=== PATIENT | male | born 1960 | race Caucasian/White ===

== ENCOUNTER 2024-02-06 15:42 | Outpatient (AMB) | payer OTHER, SELFPAY ==
--- NOTE | 2024-02-06 15:45 | MHC.PC.OV ---
Vital Signs 02/06/24 15:55 02/06/24 16:01 Height 5 ft 10.87 in Weight 220 lb 6 oz BMI 30.8 BP 142/84 H 134/70 Blood Pressure Location Lt brachial Lt brachial Position Sitting Sitting Respiration 20 Pulse 74 Pulse Source Pulse Oximeter Temp 98.5 F Temp Source Oral Pulse Oximetry (%) 95 Oxygen Delivery Method Room Air Intake Visit Reasons: NPV Intake Note: New patient visit. 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 Hand Required: No Allergies Penicillins Allergy (Unknown, Verified 02/06/24 15:54) Unknown Medication List - Last Reconciled 02/06/24 by Gertrudis Doshi MD docusate sodium (Colace) 100 mg PO DAILY dutasteride-tamsulosin 0.5-0.4 mg ER 1 cap PO DAILY lisinopril-hydrochlorothiazide 10-12.5 mg 1 tab PO DAILY multivitamin 1 tab PO DAILY Tobacco use date assessed: 02/06/24 Dental Screening Dental Screen Date: 02/06/24 Did you have a dental visit in the last 12 months?: No Did you have a dental problem in the last 6 months where you did not have access to dental care?: Yes Was dental information given to patient?: Yes HPI HPI Comments History of Present Illness Details 63 year old male with a past medical history of hypertension, perforated diverticulitis, BPH, DDD, CTS presenting to [facility]. Has not seen pcp in a few years Was hospitalized 08/2023 for perforated diverticulitis s/p Hartmanns. Has follow up with colorectal planned at [facility] for consideration of reversal & colonoscopy CV: On lisinopril-hctz Urology: Started on flomax while hospitalized Reports one week history of cough, congestion, some fatigue. ROS see HPI PHYSICAL EXAM: GENERAL: Alert and oriented x 3. NAD EYES: EOMI. Anicteric. HENT: Moist mucous membranes. No scleral icterus. No cervical lymphadenopathy. LUNGS: Scattered rhonci, wheeze CARDIOVASCULAR: Regular rate and rhythm. No murmur. No JVD. ABDOMEN: Soft, non-tender +bs EXTREMITIES: No edema. Non-tender. SKIN: No rashes or lesions. Warm. NEUROLOGIC: No focal neurological deficits. CN II-XII grossly intact PSYCHIATRIC: Cooperative. Appropriate mood and affect [facility] Social History Housing: House Patient Tobacco Use Status: Former Tobacco user Cigarette Packs Per Day: 0.5 Years Smoked: 15 e-Cigarette/Vaping Use: Never Used Second Hand Smoke Exposure: No Substance Use Type: Marijuana service: No Current occupational status: retired Cognitive needs: No Hearing needs: No Questionnaire Thrive Questionnaire Date Thrive assessed: 02/06/24 I am a: Patient What is your living situation today?: I have a steady place to live Within the past 12 months, did the food you bought not last and you didn't have the money to get more?: Never true Within the past 12 months, did you worry whether your food would run out before you got money to buy more?: Never true Do you have trouble paying for medicines?: No Do you have trouble getting transportation to medical appointments?: No Do you have trouble paying your heating and electricity bill?: No Do you have trouble taking care of your child, family member or friend?: No Do you have trouble with day-to-day activities such as bathing, preparing meals, shopping, managing finances, etc.?: No Are you currently unemployed and looking for a job?: No Are you interested in more education?: No Please select the resources that you would like help with: None THRIVE Score: 0 AUDIT C Alcohol Use Questionnaire (AUDIT-C) 1. How often do you have a drink containing alcohol?: 2-4 times a month 2. How many drinks containing alcohol do you have on a typical day when you are drinking?: 3 or 4 3. How often do you have six or more drinks on one occasion?: Never Total Score: 3 Physical exam (Primary Care) Vital Signs: Last Vital Signs Temp 98.5 F 02/06/24 15:55 Pulse 74 02/06/24 15:55 Resp 20 02/06/24 15:55 BP 134/70 02/06/24 16:01 Pulse Ox 95 02/06/24 15:55 Oxygen Delivery Method Room Air 02/06/24 15:55 BMI result Body Mass Index 30.8 Tobacco/Smoking Status: Tobacco use Status Tobacco use date assessed 02/06/24 02/06/24 16:03 Patient Tobacco Use Status Former Tobacco user 02/06/24 16:03 e-Cigarette/Vaping Use Never Used 02/06/24 16:03 Thrive Assessment: Date of Thrive Assessment Date Thrive assessed 02/06/24 02/06/24 16:03 Assessment and Plan Assessment & Plan (1) BPH (benign prostatic hyperplasia): Code(s): N40.0 - Benign prostatic hyperplasia without lower urinary tract symptoms Qualifiers: Lower urinary tract symptom detail: unspecified Lower urinary tract symptom presence: symptoms present Qualified Code(s): N40.1 - Benign prostatic hyperplasia with lower urinary tract symptoms Plan: psa ordered. continue flomax (2) Cough: Code(s): R05.9 - Cough, unspecified Qualifiers: Cough type: acute Qualified Code(s): R05.1 - Acute cough Plan: Bronchitis v RAD v pneumonia. Doxy & prednisone send (3) Hypertension: Code(s): I10 - Essential (primary) hypertension Qualifiers: Hypertension type: primary hypertension Qualified Code(s): I10 - Essential (primary) hypertension Plan: Adequately controlled on current medications Plan 63 y/o to establish care. Past medical, surgical, social and family history reviewed. Chart updated Orders: Orders Comprehensive Met. Panel 02/06/24 N40.0 - Benign prostatic hyperplasia without lower urinary tract symptoms, Z13.0 - Encounter for screening for diseases of the blood and blood-forming organs and certain disorders involving the immune mechanism, R05.9 - Cough, unspecified, I10 - Essential (primary) hypertension, Z93.3 - Colostomy status Prostate Specific Antigen 02/06/24 N40.0 - Benign prostatic hyperplasia without lower urinary tract symptoms, Z13.0 - Encounter for screening for diseases of the blood and blood-forming organs and certain disorders involving the immune mechanism, R05.9 - Cough, unspecified, I10 - Essential (primary) hypertension, Z93.3 - Colostomy status Lipid Panel 02/06/24 N40.0 - Benign prostatic hyperplasia without lower urinary tract symptoms, Z13.0 - Encounter for screening for diseases of the blood and blood-forming organs and certain disorders involving the immune mechanism, R05.9 - Cough, unspecified, I10 - Essential (primary) hypertension, Z93.3 - Colostomy status Complete Blood Count Auto Diff 02/06/24 N40.0 - Benign prostatic hyperplasia without lower urinary tract symptoms, Z13.0 - Encounter for screening for diseases of the blood and blood-forming organs and certain disorders involving the immune mechanism, R05.9 - Cough, unspecified, I10 - Essential (primary) hypertension, Z93.3 - Colostomy status UA CC w/rflx Micro + Cult 02/06/24 Z13.228 - Encounter for screening for other metabolic disorders, I10 - Essential (primary) hypertension Medications: New lisinopril-hydrochlorothiazide 10-12.5 mg 1 tab PO DAILY 90 tabs 3RF 90 days tamsulosin 0.4 mg PO DAILY albuterol sulfate 2.5 mg (3 mL) inhalation Q4H PRN 90 mL 3RF shortness of breath or wheezing doxycycline monohydrate 100 mg PO BID 14 caps 0RF 7 days prednisone 40 mg (2 x 20 mg) PO DAILY 10 tabs 0RF 5 days Coding Level of Care Code New Pt Level 5 (34355) Diagnoses Benign prostatic hyperplasia with lower urinary tract symptoms, symptom details unspecified N40.1 Lower urinary tract symptom detail: unspecified Lower urinary tract symptom presence: symptoms present Acute cough R05.1 Cough type: acute Primary hypertension I10 Hypertension type: primary hypertension
[2024-02-06 15:55] VITALS: BP 142/84; PULSE 74; RESP 20; TEMP 36.9; O2SAT 95; BMI 30.8
[2024-02-06 16:01] VITALS: BP 134/70
== END 2024-02-06 16:37 | disposition home or self-care (01) ==
PROVIDERS: PCP Internal Medicine; Visit Provider Internal Medicine
DX: N40.1 Benign prostatic hyperplasia with lower urinary tract symptoms (principal); R05.1 Acute cough; I10 Essential (primary) hypertension
CPT/HCPCS: 99204

== ENCOUNTER 2024-04-13 09:11 | Outpatient (REF) | payer OTHER, SELFPAY ==
[2024-04-13 11:46] LABS: MANUAL DIFF FLAG NO
[2024-04-13 12:08] LABS: Basophils Absolute Auto 0.1 X10*3/uL (0.0-0.2); Basophils Percent Auto 0.7 % (0-2); Eosinophils Absolute Auto 0.2 X10*3/uL (0.0-0.4); Eosinophils Percent Auto 3.2 % (0-4); Hematocrit 45.6 % (42.0-52.0); Hemoglobin 15.7 g/dl (14.0-18.0); Imm Gran Abs Auto 0.03 X10*3/uL (0.00-0.03); Imm Gran Pct Auto 0.4 % (0.0-0.4); Lymphocytes Absolute Auto 4.1 X10*3/uL (1.2-4.9); Lymphocytes Percent Auto 53.9 % (20-40); Mean Corpuscular HGB Conc 34.4 g/dl (31.0-36.0); Mean Corpuscular Hemoglobin 30.3 pg (27.0-33.0); Mean Corpuscular Volume 87.9 fL (80.0-98.0); Mean Platelet Volume 9.4 fL (9.4-12.4); Monocytes Absolute Auto 0.7 X10*3/uL (0.1-1.2); Monocytes Percent Auto 9.5 % (2-11); Neutrophils Absolute Auto 2.5 x10*3/uL (2.0-8.3); Neutrophils Percent Auto 32.3 % (45-73); Platelet Count 244 X10*3/uL (160-400); Red Blood Count 5.19 X10*6/uL (4.60-5.80); Red Cell Distribution Width 12.5 % (11.0-16.0); White Blood Count 7.6 X10*3/uL (4.8-10.8)
[2024-04-13 12:35] LABS: Alanine Aminotransferase 25 U/L (0-40); Albumin Level 4.2 g/dL (3.5-5.0); Alkaline Phosphatase 69 U/L (39-117); Anion Gap 12 (12-20); Aspartate Amino Transferase 20 U/L (5-37); Bilirubin Total 0.7 mg/dL (0.0-1.0); Blood Urea Nitrogen 21 mg/dL (9-16); Calcium 9.6 mg/dL (8.4-10.2); Carbon Dioxide 26 mmol/L (22-29); Chloride 105 mmol/L (96-108); Cholesterol 166 mg/dL (<200); Estimated Glomerular Filt Rate > 60; Glucose Random 106 mg/dL (60-115); HDL Cholesterol 42 mg/dL (>40); LDL Cholesterol Calculated 100 mg/dL (<100); Potassium 3.9 mmol/L (3.3-5.1); Sodium 139 mmol/L (135-145); Total Protein 7.4 g/dL (6.5-8.0); Triglycerides 123 mg/dL (<150)
[2024-04-13 12:48] LABS: Prostate Specific Antigen 1.65 ng/mL (<0.05-4.0)
== END 2024-04-13 09:12 | disposition home or self-care (01) ==
LOC: HO.WFDLDS 09:11
PROVIDERS: Visit Provider Internal Medicine
DX: N40.0 Benign prostatic hyperplasia without lower urinary tract symptoms (principal); Z13.0 Encounter for screening for diseases of the blood and blood-forming organs and certain disorders involving the immune mechanism; R05.9 Cough, unspecified; I10 Essential (primary) hypertension; Z93.3 Colostomy status
CPT/HCPCS: 36415; 80053; 80061; 84153; 85025

== ENCOUNTER 2024-04-17 14:28 | Outpatient (REF) | payer OTHER, SELFPAY ==
[2024-04-17 14:42] LABS: Appearance Urine Clear; Color Urine Yellow; Glucose Urine UA Negative (Negative); Leukocyte Esterase Urine Small (1+) (Negative); Nitrite Urine Positive (Negative); PH 5.5 (5.0-9.0); Specific Gravity - Urine 1.015 (1.005-1.025); UMIC TRIGGER UACC YES; Urine Blood Negative (Negative); Urine Ketones Negative (Negative); Urine Protein Negative (Neg-Trace)
[2024-04-17 14:48] LABS: Bacteria Urine 4+ (None Seen); Hyaline Casts Urine 0-2 /LPF (0-2); RBC Urine 0-2 /HPF (0-2); Squamous Epithelial Cell Urine 0-2 /HPF (0-2); UACC Culture Trigger YES; WBC Urine 21-50 /HPF (0-5)
== END 2024-04-17 14:29 | disposition home or self-care (01) ==
LOC: HO.LNP 14:28
PROVIDERS: Visit Provider Internal Medicine
DX: I10 Essential (primary) hypertension (principal); Z13.228 Encounter for screening for other metabolic disorders
CPT/HCPCS: 81001; 87086; 87088; 87186

== ENCOUNTER 2024-05-18 11:18 | Outpatient (AMB) | payer OTHER, SELFPAY ==
--- NOTE | 2024-05-18 11:27 | MHC.PC.OV ---
Vital Signs 05/18/24 11:30 05/18/24 11:45 Height 5 ft 10.87 in Weight 236 lb 6 oz BMI 33.1 BP 146/88 H 137/90 H Blood Pressure Location Rt brachial Rt brachial Position Sitting Sitting Respiration 16 Pulse 88 Pulse Source Pulse Oximeter Pulse Oximetry (%) 94 Oxygen Delivery Method Room Air Intake Visit Reasons: annual physical Intake Note: Physical. Has been out of blood pressure medication for 4 days. Hazardous Substances Scientist Required: No Allergies Penicillins Allergy (Unknown, Verified 05/18/24 11:28) Unknown Tobacco use date assessed: 02/06/24 Dental Screening Dental Screen Date: 02/06/24 HPI HPI Comments History of Present Illness Details 63 year old male with a past medical history of hypertension, perforated diverticulitis, BPH, DDD, CTS presenting for physical exam Was hospitalized 08/2023 for perforated diverticulitis s/p Hartmanns. Has follow up with colorectal planned at [facility] for consideration of reversal & colonoscopy in Aug 2024 CV: On lisinopril-hctz. Blood pressure is generally well controlled. Denies chest pain, shortness of breath, LE edema Urology: Started on flomax while hospitalized which he has continued. Had tested + for UTI-he did not tolerate the initial antibiotic and just got back from [place] and is starting the alternate abx today Says he received flu, covid and shingles vaccine at the pharmacy ROS see HPI PHYSICAL EXAM: GENERAL: Alert and oriented x 3. NAD EYES: EOMI. Anicteric. HENT: Moist mucous membranes. No scleral icterus. No cervical lymphadenopathy. LUNGS: Scattered rhonci, wheeze CARDIOVASCULAR: Regular rate and rhythm. No murmur. No JVD. : Normal penis and testes ABDOMEN: Soft, non-tender +bs EXTREMITIES: No edema. Non-tender. SKIN: No rashes or lesions. Warm. NEUROLOGIC: No focal neurological deficits. CN II-XII grossly intact PSYCHIATRIC: Cooperative. Appropriate mood and affect [facility] Social History Housing: House Patient Tobacco Use Status: Former Tobacco user Cigarette Packs Per Day: 0.5 Years Smoked: 15 e-Cigarette/Vaping Use: Never Used Second Hand Smoke Exposure: No Substance Use Type: Marijuana service: No Current occupational status: retired Cognitive needs: No Hearing needs: No Questionnaire PHQ-9 Over the last 2 weeks, how often have you been bothered by any of the following problems? 1. Little interest or pleasure in doing things: not at all 2. Feeling down, depressed, or hopeless: not at all 3. Trouble falling or staying asleep, or sleeping too much: not at all 4. Feeling tired or having little energy: not at all 5. Poor appetite or overeating: not at all 6. Feeling bad about yourself - or that you are a failure or have let yourself or your family down: not at all 7. Trouble concentrating on things, such as reading the newspaper or watching television: not at all 8. Moving or speaking so slowly that other people could have noticed. Or the opposite - being so fidgety or restless that you have been moving around a lot more than usual: not at all 9. Thoughts that you would be better off or of hurting yourself in some way: not at all Total score: 0 Depression Screening Interpretation: Negative Depression Screening Done: Yes 55729 - PHQ-9 Billing: Yes Source: Developed by Drs. Jean-Pierre Pelayo, Mihaela Luna, Shimon Marquez and colleagues, with an educational jony from [employer]. Thrive Questionnaire Date Thrive assessed: 05/18/24 I am a: Patient What is your living situation today?: I have a steady place to live Within the past 12 months, did the food you bought not last and you didn't have the money to get more?: Never true Within the past 12 months, did you worry whether your food would run out before you got money to buy more?: Never true Do you have trouble paying for medicines?: No Do you have trouble getting transportation to medical appointments?: No Do you have trouble paying your heating and electricity bill?: No Do you have trouble taking care of your child, family member or friend?: No Do you have trouble with day-to-day activities such as bathing, preparing meals, shopping, managing finances, etc.?: No Are you currently unemployed and looking for a job?: No Are you interested in more education?: No Please select the resources that you would like help with: None Currently or been in a relationship where the following occur: No concerns reported THRIVE Score: 0 Physical exam (Primary Care) Vital Signs: Last Vital Signs Pulse 88 05/18/24 11:30 Resp 16 05/18/24 11:30 BP 146/88 H 05/18/24 11:30 Pulse Ox 94 05/18/24 11:30 Oxygen Delivery Method Room Air 05/18/24 11:30 BMI result Body Mass Index 33.1 Tobacco/Smoking Status: Tobacco use Status Tobacco use date assessed 02/06/24 05/18/24 11:32 Patient Tobacco Use Status Former Tobacco user 05/18/24 11:32 e-Cigarette/Vaping Use Never Used 05/18/24 11:32 PHQ-9: PHQ-9 Score PHQ-9: Total score 0 05/18/24 11:32 Depression Screening Interpretation: Negative Thrive Assessment: Date of Thrive Assessment Date Thrive assessed 04/07/24 05/18/24 11:32 Currently or been in a relationship where the following occur: No concerns reported Coding Level of Care Code Est Pt Level 4 (72204) Est Pt Prev Care 40-64y(42801) Diagnoses Encounter for physical examination Z00.00 Assessment & Plan Assessment & Plan (1) Encounter for physical examination: Code(s): Z00.00 - Encounter for general adult medical examination without abnormal findings Plan: Preventive measures for age discussed UTD. Upcoming double endoscopy -Aug Recheck CBC Chronic medical conditions reviewed Orders: Orders Complete Blood Count Auto Diff Today R79.89 - Other specified abnormal findings of blood chemistry Pathologist Review - CBC Today R79.89 - Other specified abnormal findings of blood chemistry Medications: New olopatadine 0.2% (Pataday Once Daily Relief) 1 drp ophthalmic (eye) DAILY PRN 2.5 mL 3RF itching omeprazole 40 mg PO DAILY 90 caps 3RF tamsulosin 0.4 mg PO DAILY 90 caps 3RF
[2024-05-18 11:30] VITALS: BP 146/88; PULSE 88; RESP 16; O2SAT 94; BMI 33.1
[2024-05-18 11:45] VITALS: BP 137/90
== END 2024-05-18 12:05 | disposition home or self-care (01) ==
PROVIDERS: PCP Internal Medicine; Visit Provider Internal Medicine
DX: Z00.00 Encounter for general adult medical examination without abnormal findings (principal)

== ENCOUNTER → 2024-05-18 11:18 | Outpatient (BNVA) | payer OTHER, SELFPAY | PROVIDERS: PCP Internal Medicine; Visit Provider Internal Medicine ==

== ENCOUNTER 2024-05-18 11:57 | Outpatient (REF) | payer OTHER, SELFPAY ==
[2024-05-18 14:07] LABS: MANUAL DIFF FLAG NO
[2024-05-18 14:10] LABS: Basophils Absolute Auto 0.1 X10*3/uL (0.0-0.2); Basophils Percent Auto 0.7 % (0-2); Eosinophils Absolute Auto 0.2 X10*3/uL (0.0-0.4); Eosinophils Percent Auto 2.6 % (0-4); Hematocrit 42.9 % (42.0-52.0); Imm Gran Abs Auto 0.05 X10*3/uL (0.00-0.03); Imm Gran Pct Auto 0.7 % (0.0-0.4); Lymphocytes Absolute Auto 3.4 X10*3/uL (1.2-4.9); Lymphocytes Percent Auto 46.2 % (20-40); Mean Corpuscular Hemoglobin 30.7 pg (27.0-33.0); Mean Corpuscular Volume 87.7 fL (80.0-98.0); Mean Platelet Volume 9.2 fL (9.4-12.4); Monocytes Absolute Auto 0.7 X10*3/uL (0.1-1.2); Monocytes Percent Auto 9.8 % (2-11); Neutrophils Absolute Auto 2.9 x10*3/uL (2.0-8.3); Platelet Count 247 X10*3/uL (160-400); Red Blood Count 4.89 X10*6/uL (4.60-5.80); Red Cell Distribution Width 12.4 % (11.0-16.0); White Blood Count 7.3 X10*3/uL (4.8-10.8)
== END 2024-05-18 11:58 | disposition home or self-care (01) ==
LOC: HO.WFDLDS 11:57
PROVIDERS: Visit Provider Internal Medicine
DX: Z00.00 Encounter for general adult medical examination without abnormal findings (principal); R79.89 Other specified abnormal findings of blood chemistry
CPT/HCPCS: 85025; 96127; 99396

== ENCOUNTER 2024-06-19 09:10 | Outpatient (AMB) | payer OTHER, SELFPAY ==
--- NOTE | 2024-06-19 09:39 | A.OFFPC_ITS ---
Vital Signs 06/19/24 09:41 Height 5 ft 8 in Weight 242 lb 2 oz BMI 36.8 BP 110/76 Blood Pressure Location Rt brachial Position Sitting Respiration 16 Pulse 98 Pulse Source Pulse Oximeter Temp 98.1 F Temp Source Oral Pulse Oximetry (%) 93 Oxygen Delivery Method Room Air Intake Visit Reasons: Shortness of breath Intake Note: Shortness of breath and fatigue. Started two weeks ago. Allergies Penicillins Allergy (Unknown, Verified 06/19/24 09:39) Unknown Tobacco use date assessed: 02/06/24 Dental Screening Dental Screen Date: 02/06/24 HPI HPI Comments History of Present Illness Details 63 year old male with a past medical his tory of hypertension, perforated diverticulitis, BPH, DDD, CTS presenting for shortness of breath For the past 2 weeks patients chest feels tight, shortness of breath, +wheezing. Minimal cough. [place] tired some interval improvement. No calf pain, swelling. No jaw, left arm pain. Symptoms improved on albuterol but still not back to baseline Was hospitalized 08/2023 for perforated diverticulitis s/p Lulu. Has follow up with colorectal planned at [facility] for consideration of reversal & colonoscopy in Aug 2024 CV: On lisinopril-hctz. Blood pressure is well controlled Urology: Started on flomax while hospitalized which he has continued. Says he received flu, covid and shingles vaccine at the pharmacy ROS see HPI PHYSICAL EXAM: GENERAL: Alert and oriented x 3. NAD EYES: EOMI. Anicteric. HENT: Moist mucous membranes. No scleral icterus. No cervical lymphadenopathy. LUNGS: Scattered rhonci, wheeze CARDIOVASCULAR: Regular rate and rhythm. No murmur. No JVD. ABDOMEN: Soft, non-tender +bs EXTREMITIES: No edema. Non-tender. SKIN: No rashes or lesions. Warm. NEUROLOGIC: No focal neurological deficits. CN II-XII grossly intact PSYCHIATRIC: Cooperative. Appropriate mood and affect [facility] Social History Housing: House Alcohol intake: current Patient Tobacco Use Status: Former Tobacco user Cigarette Packs Per Day: 0.5 Years Smoked: 15 e-Cigarette/Vaping Use: Never Used Second Hand Smoke Exposure: No Substance Use Type: Crack/Cocaine, Former Substance User and Marijuana service: No Current occupational status: retired Cognitive needs: No Hearing needs: No Questionnaire Thrive Questionnaire Date Thrive assessed: 04/07/24 I am a: Patient What is your living situation today?: I have a steady place to live Within the past 12 months, did the food you bought not last and you didn't have the money to get more?: Never true Within the past 12 months, did you worry whether your food would run out before you got money to buy more?: Never true Do you have trouble paying for medicines?: No Do you have trouble getting transportation to medical appointments?: No Do you have trouble paying your heating and electricity bill?: No Do you have trouble taking care of your child, family member or friend?: No Do you have trouble with day-to-day activities such as bathing, preparing meals, shopping, managing finances, etc.?: No Are you currently unemployed and looking for a job?: No Are you interested in more education?: No Please select the resources that you would like help with: None Currently or been in a relationship where the following occur: No concerns reported THRIVE Score: 0 Physical exam (Primary Care) Vital Signs: Last Vital Signs Temp 98.1 F 06/19/24 09:41 Pulse 98 06/19/24 09:41 Resp 16 06/19/24 09:41 BP 110/76 06/19/24 09:41 Pulse Ox 93 06/19/24 09:41 Oxygen Delivery Method Room Air 06/19/24 09:41 BMI result Body Mass Index 36.8 Tobacco/Smoking Status: Tobacco use Status Tobacco use date assessed 02/06/24 06/19/24 09:45 Patient Tobacco Use Status Former Tobacco user 06/19/24 09:45 e-Cigarette/Vaping Use Never Used 06/19/24 09:45 Thrive Assessment: Date of Thrive Assessment Date Thrive assessed 04/07/24 06/19/24 09:45 Currently or been in a relationship where the following occur: No concerns reported Coding Level of Care Code Est Pt Level 5 (97504) Diagnoses Reactive airway disease with acute exacerbation, unspecified asthma severity, unspecified whether persistent J45.901 Asthma severity: unspecified severity Asthma persistence: unspecified Asthma complication type: with acute exacerbation GRACIELA (obstructive sleep apnea) G47.33 Dry eyes H04.123 Abnormal CBC R79.89 Time Spent (min) 47 Assessment & Plan Assessment & Plan (1) Reactive airway disease: Code(s): J45.909 - Unspecified asthma, uncomplicated Category: Medical Qualifiers: Asthma severity: unspecified severity Asthma persistence: unspecified Asthma complication type: with acute exacerbation Qualified Code(s): J45.901 - Unspecified asthma with (acute) exacerbation Plan: Azithromycin, prednisone. If no improvement consider imaging. EKG reviewed- normal (2) GRACIELA (obstructive sleep apnea): Code(s): G47.33 - Obstructive sleep apnea (adult) (pediatric) Category: Medical Plan: Has appt scheduled with sleep medicine (3) Dry eyes: Code(s): H04.123 - Dry eye syndrome of bilateral lacrimal glands Category: Medical Plan: refer ophtho (4) Abnormal CBC: Code(s): R79.89 - Other specified abnormal findings of blood chemistry Category: Medical Plan: plan for repeat Orders: Orders XR chest 2V Today J45.901 - Unspecified asthma with (acute) exacerbation, R06.02 - Shortness of breath Complete Blood Count Auto Diff 6 Weeks J45.901 - Unspecified asthma with (acute) exacerbation, R06.02 - Shortness of breath Pathologist Review - CBC 6 Weeks J45.901 - Unspecified asthma with (acute) exacerbation, R06.02 - Shortness of breath Referrals Ophthalmology Referral H04.123 - Dry eye syndrome of bilateral lacrimal glands Medications: New azithromycin For 250 mg dose pack: take 500 mg today (day 1), then 250 mg for 4 days (days 2-5) PO 6 tabs 0RF prednisone 40 mg (2 x 20 mg) PO DAILY 10 tabs 0RF
[2024-06-19 09:41] VITALS: BP 110/76; PULSE 98; RESP 16; TEMP 36.7; O2SAT 93; BMI 36.8
== END 2024-06-19 11:13 | disposition home or self-care (01) ==
PROVIDERS: PCP Internal Medicine; Visit Provider Internal Medicine
DX: J45.901 Unspecified asthma with (acute) exacerbation (principal); G47.33 Obstructive sleep apnea (adult) (pediatric); H04.123 Dry eye syndrome of bilateral lacrimal glands; R79.89 Other specified abnormal findings of blood chemistry

== ENCOUNTER → 2024-06-19 09:10 | Outpatient (BNVA) | payer OTHER, SELFPAY | PROVIDERS: PCP Internal Medicine; Visit Provider Internal Medicine | DX: J45.901 Unspecified asthma with (acute) exacerbation (principal); G47.33 Obstructive sleep apnea (adult) (pediatric); H04.123 Dry eye syndrome of bilateral lacrimal glands; R79.89 Other specified abnormal findings of blood chemistry; I10 Essential (primary) hypertension; Z79.899 Other long term (current) drug therapy | CPT/HCPCS: 99212 ==

== ENCOUNTER 2024-07-06 14:23 | Outpatient (AMB) | payer OTHER, SELFPAY ==
[2024-07-06 14:34] VITALS: BMI 37.9
--- NOTE | 2024-07-06 14:34 | A.OFFVIS_ITS ---
Vital Signs 07/06/24 14:34 Height 5 ft 8 in Weight 249 lb BMI 37.9 Intake Visit Reasons: INP-GRACIELA Intake Note: Patient presents for follow up GRACIELA Allergies Penicillins Allergy (Unknown, Verified 07/06/24 14:35) Unknown Medication List - Last Reconciled 07/06/24 by Rahel Diaz MD azithromycin For 250 mg dose pack: take 500 mg today (day 1), then 250 mg for 4 days (days 2-5) PO docusate sodium (Colace) 100 mg PO DAILY lisinopril-hydrochlorothiazide 10-12.5 mg 1 tab PO DAILY 90 days multivitamin 1 tab PO DAILY olopatadine 0.2% (Pataday Once Daily Relief) 1 drp ophthalmic (eye) DAILY PRN omeprazole 40 mg PO DAILY prednisone 40 mg (2 x 20 mg) PO DAILY tamsulosin 0.4 mg PO DAILY HPI Comments Details: 64y/o comes for sleep evaluation . Main complaints-snoring, witnessed apneas, gasping arousals Sleep questionnaire- Difficulty falling asleep-yes Difficulty staying asleep-yes Number of arousals-4 Snoring-yes Witnessed apneas-yes Gasping arousals-yes Nocturia-yes GERD-yes Vivid dreams-yes Acting out dreams -yes Abnormal behavior in sleep-no ABnormal movements in sleep-yes Morning headaches-no Excessive daytime sleepiness-yes Daytime naps- yes restless legs- yes Hallucinations- no sleep paralysis- no Drop attacks- no he used to smoke a lot of marijuana. He had colostomy due to diverticulitis and has lost weight since then [facility] Medical History (Updated 07/06/24 @ 14:52 by Rahel Diaz MD) Nocturnal leg cramps Witnessed apneic spells Hypersomnia Snoring Abnormal CBC Hypertension BPH (benign prostatic hyperplasia) Reactive airway disease Shortness of breath Surgical History History of colon surgery Social History Housing: House Alcohol intake: current Patient Tobacco Use Status: Former Tobacco user Cigarette Packs Per Day: 0.5 Years Smoked: 15 e-Cigarette/Vaping Use: Never Used Second Hand Smoke Exposure: No Substance Use Type: Crack/Cocaine, Former Substance User and Marijuana service: No Current occupational status: retired Cognitive needs: No Hearing needs: No Physical Exam Vital Signs: BMI result Body Mass Index 37.9 Assessment & Plan Assessment & Plan (1) Snoring: Code(s): R06.83 - Snoring Category: Medical (2) Hypersomnia: Code(s): G47.10 - Hypersomnia, unspecified Category: Medical (3) Witnessed apneic spells: Code(s): R06.81 - Apnea, not elsewhere classified Category: Medical (4) Nocturnal leg cramps: Comment: better since he increased water intake Code(s): G47.62 - Sleep related leg cramps Category: Medical Plan Home sleep test to r/o sleep apnea will consider gabapentin for muscle cramps Orders: Orders RT home sleep study Today G47.10 - Hypersomnia, unspecified, R06.81 - Apnea, not elsewhere classified, R06.83 - Snoring Coding Level of Care Code New Pt Level 4 (20803) Diagnoses Snoring R06.83 Hypersomnia G47.10 Witnessed apneic spells R06.81 Nocturnal leg cramps G47.62 [place] Sleepiness Scale Questions Sitting and reading: slight chance of dozing Watching TV: moderate chance of dozing Sitting inactive in a theater, movie etc.: moderate chance of dozing As a passenger in a car for an hour without break: slight chance of dozing Lying down in the afternoon when circumstances permit: moderate chance of dozing Sitting and talking to someone: would never doze Sitting quietly after lunch without alcohol: moderate chance of dozing In a car, while stopped for a few minutes in the traffic: would never doze ESS < 10: normal, ESS > 12: pathologic: 10
== END 2024-07-06 14:59 | disposition home or self-care (01) ==
PROVIDERS: PCP Internal Medicine; Visit Provider Psychiatry & Neurology Neurology
DX: R06.83 Snoring (principal); G47.10 Hypersomnia, unspecified; R06.81 Apnea, not elsewhere classified; G47.62 Sleep related leg cramps
CPT/HCPCS: 99204

== ENCOUNTER → 2024-07-06 14:23 | Outpatient (BNVA) | payer OTHER, SELFPAY | PROVIDERS: PCP Internal Medicine; Visit Provider Psychiatry & Neurology Neurology | DX: G47.33 Obstructive sleep apnea (adult) (pediatric) (principal); G47.62 Sleep related leg cramps; G47.10 Hypersomnia, unspecified; R06.83 Snoring | CPT/HCPCS: 99202 ==

== ENCOUNTER → 2024-08-20 13:05 | Outpatient (REF) | payer OTHER, SELFPAY | LOC: HO.SL 13:05 | PROVIDERS: PCP Internal Medicine; Visit Provider Psychiatry & Neurology Neurology | DX: G47.10 Hypersomnia, unspecified (principal); R06.83 Snoring; R06.81 Apnea, not elsewhere classified | CPT/HCPCS: 95806 ==

== ENCOUNTER → 2024-08-20 13:21 | Outpatient (BNV) | payer OTHER, SELFPAY | PROVIDERS: PCP Internal Medicine; Visit Provider Psychiatry & Neurology Neurology | DX: G47.33 Obstructive sleep apnea (adult) (pediatric) (principal) | CPT/HCPCS: 95806 ==

== ENCOUNTER → 2024-09-20 19:30 | Outpatient (REF) | payer OTHER, SELFPAY | LOC: HO.SL 19:30 | PROVIDERS: PCP Internal Medicine; Visit Provider Psychiatry & Neurology Neurology | DX: G47.33 Obstructive sleep apnea (adult) (pediatric) (principal) | CPT/HCPCS: 95811 ==

== ENCOUNTER → 2024-09-20 23:19 | Outpatient (BNV) | payer OTHER, SELFPAY | PROVIDERS: PCP Internal Medicine; Visit Provider Psychiatry & Neurology Neurology | DX: G47.33 Obstructive sleep apnea (adult) (pediatric) (principal) | CPT/HCPCS: 95811 ==

== ENCOUNTER 2024-09-24 15:03 | Outpatient (AMB) | payer OTHER, SELFPAY ==
--- NOTE | 2024-09-24 15:05 | MHC.PC.OV ---
Vital Signs 09/24/24 15:11 Height 5 ft 8 in Weight 253 lb 2 oz BMI 38.5 BP 116/82 Blood Pressure Location Lt brachial Position Sitting Respiration 18 Pulse 119 H Pulse Source Pulse Oximeter Pulse Oximetry (%) 95 Oxygen Delivery Method Room Air Intake Visit Reasons: Thyroid Eye Diseases Intake Note: Wants blood work to check thyroid. Cant see in the morning and eyes burn. Teacher Required: No Allergies Penicillins Allergy (Unknown, Verified 09/24/24 15:09) Unknown Medication List - Last Reconciled 09/24/24 by Gertrudis Doshi MD docusate sodium (Colace) 100 mg PO DAILY lisinopril-hydrochlorothiazide 10-12.5 mg 1 tab PO DAILY 90 days multivitamin 1 tab PO DAILY neomycin-polymyxin B-dexameth 3.5mg/mL-10,000 unit/mL-0.1 % drps ophthalmic (eye) olopatadine 0.2% (Pataday Once Daily Relief) 1 drp ophthalmic (eye) DAILY PRN omeprazole 40 mg PO DAILY prednisone 40 mg (2 x 20 mg) PO DAILY tamsulosin 0.4 mg PO DAILY Tobacco use date assessed: 02/06/24 Dental Screening Dental Screen Date: 02/06/24 HPI HPI Comments History of Present Illness Details 63 year old male with a past medical history of hypertension, perforated diverticulitis, BPH, DDD, CTS presenting for dry eyes Patient has ongoing issues with dry, gritty, painful/itchy eyes. He is seeing the eye doctor. Started on eye drops without improvement. Endorses dry mouth. Denies rash. Was hospitalized 08/2023 for perforated diverticulitis s/p Lulu. Has followedup with [facility] and will undergo reversal this spring CV: On lisinopril-hctz. Blood pressure is well controlled Urology: Started on flomax while hospitalized which he has continued. Says he received flu, covid and shingles vaccine at the pharmacy ROS see HPI PHYSICAL EXAM: GENERAL: Alert and oriented x 3. NAD EYES: EOMI. Anicteric. HENT: Moist mucous membranes. Scleral irritation. No cervical lymphadenopathy. LUNGS: Scattered rhonci, wheeze CARDIOVASCULAR: Regular rate and rhythm. No murmur. No JVD. ABDOMEN: Soft, non-tender +bs EXTREMITIES: No edema. Non-tender. SKIN: No rashes or lesions. Warm. NEUROLOGIC: No focal neurological deficits. CN II-XII grossly intact PSYCHIATRIC: Cooperative. Appropriate mood and affect [facility]LY [facility] Medical History Severe obstructive sleep apnea Nocturnal leg cramps Witnessed apneic spells Hypersomnia Snoring Abnormal CBC Hypertension BPH (benign prostatic hyperplasia) Reactive airway disease Shortness of breath Surgical History History of colon surgery Social History Housing: House Alcohol intake: current Patient Tobacco Use Status: Former Tobacco user Cigarette Packs Per Day: 0.5 Years Smoked: 15 e-Cigarette/Vaping Use: Never Used Second Hand Smoke Exposure: No Substance Use Type: Crack/Cocaine, Former Substance User and Marijuana service: No Current occupational status: retired Cognitive needs: No Hearing needs: No Questionnaire PHQ-9 Over the last 2 weeks, how often have you been bothered by any of the following problems? 1. Little interest or pleasure in doing things: not at all 2. Feeling down, depressed, or hopeless: not at all 3. Trouble falling or staying asleep, or sleeping too much: several days 4. Feeling tired or having little energy: several days 5. Poor appetite or overeating: not at all 6. Feeling bad about yourself - or that you are a failure or have let yourself or your family down: not at all 7. Trouble concentrating on things, such as reading the newspaper or watching television: not at all 8. Moving or speaking so slowly that other people could have noticed. Or the opposite - being so fidgety or restless that you have been moving around a lot more than usual: not at all 9. Thoughts that you would be better off or of hurting yourself in some way: not at all Total score: 2 Depression Screening Interpretation: Negative Depression Screening Done: Yes 82041 - PHQ-9 Billing: Yes Source: Developed by Drs. Jean-Pierre Pelayo, Mihaela Luna, Shimon Marquez and colleagues, with an educational jony from [employer]. Thrive Questionnaire Date Thrive assessed: 09/21/24 I am a: Patient What is your living situation today?: I have a steady place to live Within the past 12 months, did the food you bought not last and you didn't have the money to get more?: Never true Within the past 12 months, did you worry whether your food would run out before you got money to buy more?: Never true Do you have trouble paying for medicines?: No Do you have trouble getting transportation to medical appointments?: No Do you have trouble paying your heating and electricity bill?: No Do you have trouble taking care of your child, family member or friend?: No Do you have trouble with day-to-day activities such as bathing, preparing meals, shopping, managing finances, etc.?: No Are you currently unemployed and looking for a job?: No Are you interested in more education?: No Please select the resources that you would like help with: None Currently or been in a relationship where the following occur: No concerns reported THRIVE Score: 0 AUDIT C Alcohol Use Questionnaire (AUDIT-C) 1. How often do you have a drink containing alcohol?: 2-3 times a week 2. How many drinks containing alcohol do you have on a typical day when you are drinking?: 3 or 4 3. How often do you have six or more drinks on one occasion?: Less than monthly Total Score: 5 CEM-7 AMB Questionnaire CEM-7 Date CEM - 7 assessed: 09/24/24 Feeling nervous, anxious, or on edge: 0 = Not at all Not being able to stop or control worryin = Not at all Worrying too much about different things: 0 = Not at all Trouble relaxin = Not at all Being so restless that it is hard to sit still: 0 = Not at all Becoming easily annoyed or irritable: 0 = Not at all Feeling afraid as if something awful might happen: 0 = Not at all Total CEM-7 score (0-4 normal; 5-9 mild; 10-14 moderate; 15-21 severe): 0 Source: Developed by Drs. Jean-Pierre Pelayo, Mihaela Luna, Shimon Marquez and colleagues, with an educational jony from [employer]. CEM-7 Assessment Billing CEM-7 Assessment Tool: CEM-7 Assessment 15856 Physical exam (Primary Care) Vital Signs: Last Vital Signs Pulse 119 H 09/24/24 15:11 Resp 18 09/24/24 15:11 BP 116/82 09/24/24 15:11 Pulse Ox 95 09/24/24 15:11 Oxygen Delivery Method Room Air 09/24/24 15:11 BMI result Body Mass Index 38.5 Tobacco/Smoking Status: Tobacco use Status Tobacco use date assessed 02/06/24 09/24/24 15:07 Patient Tobacco Use Status Former Tobacco user 09/24/24 15:17 e-Cigarette/Vaping Use Never Used 09/24/24 15:17 PHQ-9: PHQ-9 Score PHQ-9: Total score 2 09/25/24 09:59 Depression Screening Interpretation: Negative Thrive Assessment: Date of Thrive Assessment Date Thrive assessed 09/21/24 09/24/24 15:07 Currently or been in a relationship where the following occur: No concerns reported Coding Level of Care Code Est Pt Level 4 (98839) Diagnoses Dry eyes H04.123 Primary hypertension I10 Hypertension type: primary hypertension Additional Codes CEM-7 Assessment Billing - CEM-7 Assessment Tool: CEM-7 Assessment 97435 ([id number]) PHQ-9 - 22608 - PHQ-9 Billing: Yes ([id number]) Assessment & Plan Assessment & Plan (1) Dry eyes: Code(s): H04.123 - Dry eye syndrome of bilateral lacrimal glands Category: Medical Plan: continue follow up with ophtho Labs ordered (2) Hypertension: Code(s): I10 - Essential (primary) hypertension Category: Medical Qualifiers: Hypertension type: primary hypertension Qualified Code(s): I10 - Essential (primary) hypertension Plan: well controlled on current medication. efforts toward weight loss. Low salt diet Orders: Orders Pathologist Review - CBC 09/24/24 G47.33 - Obstructive sleep apnea (adult) (pediatric), H04.123 - Dry eye syndrome of bilateral lacrimal glands, R79.89 - Other specified abnormal findings of blood chemistry TSH reflex Free T4 09/24/24 G47.33 - Obstructive sleep apnea (adult) (pediatric), H04.123 - Dry eye syndrome of bilateral lacrimal glands, R79.89 - Other specified abnormal findings of blood chemistry Complete Blood Count Auto Diff 09/24/24 G47.33 - Obstructive sleep apnea (adult) (pediatric), H04.123 - Dry eye syndrome of bilateral lacrimal glands, R79.89 - Other specified abnormal findings of blood chemistry FRANCIS Reflex Titer and Pattern 09/24/24 G47.33 - Obstructive sleep apnea (adult) (pediatric), H04.123 - Dry eye syndrome of bilateral lacrimal glands, R79.89 - Other specified abnormal findings of blood chemistry Sjogren's Antibodies 09/24/24 G47.33 - Obstructive sleep apnea (adult) (pediatric), H04.123 - Dry eye syndrome of bilateral lacrimal glands, R79.89 - Other specified abnormal findings of blood chemistry Scleroderma 12 Panel 09/24/24 G47.33 - Obstructive sleep apnea (adult) (pediatric), H04.123 - Dry eye syndrome of bilateral lacrimal glands, R79.89 - Other specified abnormal findings of blood chemistry
[2024-09-24 15:11] VITALS: BP 116/82; PULSE 119; RESP 18; O2SAT 95; BMI 38.5
== END 2024-09-24 17:02 | disposition home or self-care (01) ==
PROVIDERS: PCP Internal Medicine; Visit Provider Internal Medicine
DX: H04.123 Dry eye syndrome of bilateral lacrimal glands (principal); I10 Essential (primary) hypertension

== ENCOUNTER → 2024-09-24 15:03 | Outpatient (BNVA) | payer OTHER, SELFPAY | PROVIDERS: PCP Internal Medicine; Visit Provider Internal Medicine ==

== ENCOUNTER 2024-09-24 15:51 | Outpatient (REF) | payer OTHER, SELFPAY ==
[2024-09-24 17:50] LABS: MANUAL DIFF FLAG NO
[2024-09-24 18:13] LABS: Basophils Absolute Auto 0.1 X10*3/uL (0.0-0.2); Basophils Percent Auto 0.9 % (0-2); Eosinophils Absolute Auto 0.2 X10*3/uL (0.0-0.4); Eosinophils Percent Auto 2.5 % (0-4); Hematocrit 48.2 % (42.0-52.0); Hemoglobin 16.9 g/dl (14.0-18.0); Imm Gran Abs Auto 0.03 X10*3/uL (0.00-0.03); Imm Gran Pct Auto 0.4 % (0.0-0.4); Lymphocytes Absolute Auto 3.2 X10*3/uL (1.2-4.9); Lymphocytes Percent Auto 39.5 % (20-40); Mean Corpuscular HGB Conc 35.1 g/dl (31.0-36.0); Mean Corpuscular Volume 85.5 fL (80.0-98.0); Mean Platelet Volume 9.3 fL (9.4-12.4); Monocytes Absolute Auto 0.8 X10*3/uL (0.1-1.2); Monocytes Percent Auto 9.4 % (2-11); Neutrophils Absolute Auto 3.8 x10*3/uL (2.0-8.3); Neutrophils Percent Auto 47.3 % (45-73); Platelet Count 253 X10*3/uL (160-400); Red Blood Count 5.64 X10*6/uL (4.60-5.80); Red Cell Distribution Width 12.6 % (11.0-16.0)
[2024-09-24 18:54] LABS: TSH reflex Free T4 1.29 uIU/mL (0.32-4.0)
[2024-09-25 16:48] LABS: Antibody to SS-A Antigen <1.0 NEG AI (<1.0 NEG); Antibody to SS-B Antigen <1.0 NEG AI (<1.0 NEG)
[2024-09-27 11:14] LABS: Anti Nuclear Antibody Screen NEGATIVE (NEGATIVE)
[2024-10-01 14:37] LABS: Centromere Protein A Ab <11 SI (<11); Centromere Protein B Ab <11 SI (<11); Fibrillarin Ab <11 SI (<11); PM SCL 100 Ab <11 SI (<11); PM SCL 75 Ab <11 SI (<11); RNA Polymerase III RP11 Ab <11 SI (<11); RNA Polymerase III RP155 Ab <11 SI (<11); SCL-70 Extractable Nuclear Ab <11 SI (<11); Th-To Ab <11 SI (<11); U1 SNRNP RNP 70KD <11 SI (<11); U1 SNRNP RNP A <11 SI (<11); U1 SNRNP RNP C <11 SI (<11)
== END 2024-09-24 15:52 | disposition home or self-care (01) ==
LOC: HO.WFDLDS 15:51
PROVIDERS: Visit Provider Internal Medicine
DX: H04.123 Dry eye syndrome of bilateral lacrimal glands (principal); I10 Essential (primary) hypertension; G47.33 Obstructive sleep apnea (adult) (pediatric); R79.89 Other specified abnormal findings of blood chemistry; N40.0 Benign prostatic hyperplasia without lower urinary tract symptoms; Z79.899 Other long term (current) drug therapy
CPT/HCPCS: 84182; 84443; 85025; 86038; 86235; 96127; 99212

== ENCOUNTER 2024-10-09 13:03 | Outpatient (AMB) | payer OTHER, SELFPAY ==
[2024-10-09 13:05] VITALS: BP 112/72; PULSE 96; O2SAT 95; BMI 38.5
--- NOTE | 2024-10-09 13:05 | MHC.OFFVIS ---
Vital Signs 10/09/24 13:05 Height 5 ft 8 in Weight 253 lb 2 oz BMI 38.5 BP 112/72 Blood Pressure Location Rt brachial Position Sitting Pulse 96 Pulse Source Pulse Oximeter Pulse Oximetry (%) 95 Oxygen Delivery Method Room Air Intake Visit Reasons: follow up GRACIELA Intake Note: Patient presents for follow up GRACIELA. Sleep study on file and done on 08/20/24. Accompanied by: Daughter Allergies Penicillins Allergy (Unknown, Verified 10/09/24 13:13) Unknown HPI Comments Details: 64y/o comes for sleep evaluation. Daughter is here along with him to help with communication. Main complaints-snoring, witnessed apneas, gasping arousals and choking multiple times a night. He used to smoke a lot of marijuan and h/o substance use disorder. He had colostomy due to diverticulitis and has lost weight since then. Titration results are pending, will send in RX for CPAP per pressures. He c/o allergies, has RLS and morning headaches. He has dry eyes, very bothersome started Xidra last week seen by and followed by [facility]. H/o pink eyes, itchy eyes and latanoprast use. H/o nocturia on Tamsulosin. He uses albuterol PRN however needs PFT evaluation will refer to pulmonology. Former smoker of MJ quit smoking in Aug 2023. Patient declined Physical Exam today, frustrated, angry and uses foul language. Explained to patient will send CPAP order once his pressures are specified per titration study as we don't have that information at this time and due to the severity of his apnea, we can't start him on Auto PAP. Will f/u in 3 months for compliance. Obstructive Sleep Apnea and HST AHI is 67dzC31 and Oxygen Nasir to 65% HST Auto pap recommended [id number] PSG Titration Study completed 09/20/2024 start CPAP at 14cm H20 oxygenation normalized on 03yzP99 PLMS 11 PLMS arousals with a PLMS arousal index of 2.9/hour FOR[facility]LY [facility], [facility] Medical History Severe obstructive sleep apnea Nocturnal leg cramps Witnessed apneic spells Hypersomnia Snoring Abnormal CBC Hypertension BPH (benign prostatic hyperplasia) Reactive airway disease Shortness of breath Surgical History History of colon surgery Social History Housing: House Alcohol intake: current Patient Tobacco Use Status: Former Tobacco user Cigarette Packs Per Day: 0.5 Years Smoked: 15 e-Cigarette/Vaping Use: Never Used Second Hand Smoke Exposure: No Substance Use Type: Crack/Cocaine, Former Substance User and Marijuana service: No Current occupational status: retired Cognitive needs: No Hearing needs: No Physical Exam Vital Signs: Last Vital Signs Pulse 96 10/09/24 13:05 BP 112/72 10/09/24 13:05 Pulse Ox 95 10/09/24 13:05 Oxygen Delivery Method Room Air 10/09/24 13:05 BMI result Body Mass Index 38.5 Results Reviewed Results Reviewed: Obstructive Sleep Apnea and HST AHI is 52hnV39 and Oxygen Nasir to 65% HST Auto pap recommended 6-01pwV99 PSG Titration Study completed 09/20/2024 start CPAP at 14cm H20 oxygenation normalized on 73kyJ76 PLMS 11 PLMS arousals with a PLMS arousal index of 2.9/hour Assessment & Plan Assessment & Plan (1) Severe obstructive sleep apnea: Code(s): G47.33 - Obstructive sleep apnea (adult) (pediatric) Category: Medical (2) Nocturnal leg cramps: Comment: better since he increased water intake Code(s): G47.62 - Sleep related leg cramps Category: Medical (3) Witnessed apneic spells: Code(s): R06.81 - Apnea, not elsewhere classified Category: Medical (4) Reactive airway disease: Code(s): J45.909 - Unspecified asthma, uncomplicated Category: Medical Qualifiers: Asthma severity: unspecified severity Asthma persistence: unspecified Asthma complication type: with acute exacerbation Qualified Code(s): J45.901 - Unspecified asthma with (acute) exacerbation Plan Start CPAP per PSG patient has severe obstructive sleep apnea. CPAP at 71cyZ31 with medium air touch F20 mask and follow up to ensure compliance and therapy response quarterly. F/U with Pulmonology as albuterol PRN is not effective per daughter. Allergies, testing is recommended. Labs to r/o nutritional deficiencies. Patient Instructions: Sleep Hygiene Provided Sleep in a dark room temperatures of 68 or below. No devices in bed. Limit fluids 2 hours prior to bed. RLS: will trial patient on dopamine agonist if he is amenable. Pulmonary f/u for PFT Labs for deficiencies. Coding Level of Care Code Est Pt Level 4 (30823) Diagnoses Severe obstructive sleep apnea G47.33 Nocturnal leg cramps G47.62 Witnessed apneic spells R06.81 Reactive airway disease with acute exacerbation, unspecified asthma severity, unspecified whether persistent J45.901 Asthma severity: unspecified severity Asthma persistence: unspecified Asthma complication type: with acute exacerbation Time Spent (min) 20 Comment Evaluation of Baseline PLMS and GRACIELA Sleep Questionnaire Difficulty falling asleep: Yes Difficulty staying asleep?: Yes Number of arousals: 4 Snoring: Yes Witnessed apneas: Yes Gasping arousals: Yes Nocturia: Yes GERD: Yes Vivid dreams: Yes Acting out dreams: No Abnormal behavior in sleep: Yes Abnormal movements in sleep: Yes Morning headaches: Yes Excessive daytime sleepiness: Yes Daytime naps: Yes Restless legs: Yes Hallucinations: No Sleep paralysis: No Drop attacks: No Sleep Study: Yes CPAP: No
== END 2024-10-09 13:46 | disposition home or self-care (01) ==
LOC: HO.HSMS 13:04
PROVIDERS: PCP Internal Medicine; Visit Provider Physician Assistant Medical
DX: G47.33 Obstructive sleep apnea (adult) (pediatric) (principal); G47.62 Sleep related leg cramps; R06.81 Apnea, not elsewhere classified; J45.901 Unspecified asthma with (acute) exacerbation
CPT/HCPCS: 99214

== ENCOUNTER → 2024-10-09 13:03 | Outpatient (BNVA) | payer OTHER, SELFPAY | PROVIDERS: PCP Internal Medicine; Visit Provider Physician Assistant Medical | DX: G47.33 Obstructive sleep apnea (adult) (pediatric) (principal); G47.62 Sleep related leg cramps; R06.83 Snoring; J45.901 Unspecified asthma with (acute) exacerbation | CPT/HCPCS: 99212 ==

== ENCOUNTER 2025-01-10 12:50 | Outpatient (AMB) | payer OTHER, SELFPAY ==
--- NOTE | 2025-01-10 12:55 | A.OFFVIS_ITS ---
Vital Signs 01/10/25 12:56 Height 5 ft 8 in Weight 261 lb 6 oz BMI 39.7 BP 130/88 Blood Pressure Location Lt brachial Position Sitting Pulse 85 Pulse Source Pulse Oximeter Pulse Oximetry (%) 93 Oxygen Delivery Method Room Air Intake Visit Reasons: follow up GRACIELA Intake Note: Patient presents follow up GRACIELA. 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 Obstructive Sleep Apnea and HST AHI is 48uhG94 and Oxygen Nasir to 65% HST Auto pap recommended [id number] PSG Titration Study completed 09/20/2024 start CPAP at 14cm H20 oxygenation normalized on 33oxG97 PLMS 11 PLMS arousals with a PLMS arousal index of 2.9/hour He had Ostomy, in Aug 2022 [facility]. He feels refreshed in the mornings and more energetic through the days. He likes his pressures at 29lvA42. He changes mask, washes tubing, changes filters and fills it with distilled water. He c/o allergies. Dry eyes have improved since starting Xidra and now uses it prn. RLS syndrome symptoms with burning in the first and second digit r. foot with numbness and tingling due to nerve damage to L5/S1. C/o r. hip pain and thoracic spine anterolisthesis. Denies morning headaches. H/o nocturia on Tamsulosin. Former smoker of MJ quit smoking in Aug 2023. [facility] Medical History Severe obstructive sleep apnea Nocturnal leg cramps Witnessed apneic spells Hypersomnia Snoring Abnormal CBC Hypertension BPH (benign prostatic hyperplasia) Reactive airway disease Shortness of breath Surgical History History of colon surgery Social History Housing: House Alcohol intake: current Patient Tobacco Use Status: Former Tobacco user Cigarette Packs Per Day: 0.5 Years Smoked: 15 e-Cigarette/Vaping Use: Never Used Second Hand Smoke Exposure: No Substance Use Type: Crack/Cocaine, Former Substance User and Marijuana service: No Current occupational status: retired Cognitive needs: No Hearing needs: No Physical Exam Vital Signs: Last Vital Signs Pulse 85 01/10/25 12:56 BP 130/88 01/10/25 12:56 Pulse Ox 93 01/10/25 12:56 Oxygen Delivery Method Room Air 01/10/25 12:56 BMI result Body Mass Index 39.7 cooperative Const General: cooperative, comfortable and no acute distress Nutritional Appearance: obese Orientation/consciousness: patient oriented x3 HEENT Face and sinus: Yes face symmetric Eyes Pupils: Equal, round and reactive pupils present Neck Neck: Yes other (limited rom on flexion and extension) Resp Effort & Inspection: normal respiratory effort, able to speak in complete sentences and Actively coughing Neuro General: patient oriented x3 and moves all extremities Cranial nerves: Yes Equal, round and reactive pupils present, Yes Normal accommodation reflex present, Yes Normal facial strength present, Yes Midline tongue present, Yes Ability to bilaterally rotate head present and Yes Ability to bilaterally elevate shoulders present Gait exam (Neuro): Normal gait present Motor exam (neuro): 5/5 motor strength present throughout and Normal motor muscle tone present throughout Coordination: qbshqb-gn-syox test normal Psych Appearance: grossly normal Attitude: cooperative Thought process: Normal thought process present Thought content: Normal thought content present Results Reviewed Results Reviewed: graciela compliance report /72560-5/2025 total use 71/90 days and 79% avg use total days is 5hours and 58min Leaks 7.0 median and pressures [id number] AHI 1.8/hr Assessment & Plan Assessment & Plan (1) Severe obstructive sleep apnea: Code(s): G47.33 - Obstructive sleep apnea (adult) (pediatric) Category: Medical (2) Nocturnal leg cramps: Comment: better since he increased water intake Code(s): G47.62 - Sleep related leg cramps Category: Medical (3) Witnessed apneic spells: Code(s): R06.81 - Apnea, not elsewhere classified Category: Medical (4) Reactive airway disease: Code(s): J45.909 - Unspecified asthma, uncomplicated Category: Medical Qualifiers: Asthma severity: unspecified severity Asthma persistence: unspecified Asthma complication type: with acute exacerbation Qualified Code(s): J45.901 - Unspecified asthma with (acute) exacerbation (5) Fatigue: Code(s): R53.83 - Other fatigue Category: Medical Qualifiers: Fatigue type: chronic, unspecified Qualified Code(s): R53.82 - Chronic fatigue, unspecified Plan Start CPAP per PSG patient has severe obstructive sleep apnea. CPAP at 22ueK44 with medium air touch F20 mask and follow up to ensure compliance. Titration of pressures completed 09/2024. Labs to r/o nutritional deficiencies and rls? B12/MMA/Homocysteine/ Ferritin/ CMP/ vit D, folate. Orders: Orders Ferritin Today G47.62 - Sleep related leg cramps, R53.83 - Other fatigue Methylmalonic Acid Today G47.62 - Sleep related leg cramps, G47.9 - Sleep disorder, unspecified, R53.83 - Other fatigue Vitamin B12 and Folate Today G47.62 - Sleep related leg cramps, R53.83 - Other fatigue Vitamin D 25-OH Total Today G47.62 - Sleep related leg cramps, R53.83 - Other fatigue Homocysteine Today G47.62 - Sleep related leg cramps, G47.9 - Sleep disorder, unspecified, R53.83 - Other fatigue Hemoglobin A1c Today G47.62 - Sleep related leg cramps, R53.83 - Other fatigue Comprehensive Met. Panel Today G47.62 - Sleep related leg cramps, R53.83 - Other fatigue TSH reflex Free T4 Today G47.62 - Sleep related leg cramps, R53.83 - Other fatigue Patient Instructions: Sleep Hygiene provided: set a scheduled bedtime and wake time to help regulate the circadian rhythm and balance the release of pituitary hormones. Sleep in a dark room, temperatures below 68 degrees, and no devices n bed. Limit caffeinated products 6 hours prior to bed, and limit fluids 2-4 hours prior to bed. Gentle night yoga, diffusing essential oils, and playing soft music can be relaxing. can f/u in 6 months Coding Level of Care Code Est Pt Level 4 (87020) Diagnoses Severe obstructive sleep apnea G47.33 Nocturnal leg cramps G47.62 Witnessed apneic spells R06.81 Reactive airway disease with acute exacerbation, unspecified asthma severity, unspecified whether persistent J45.901 Asthma severity: unspecified severity Asthma persistence: unspecified Asthma complication type: with acute exacerbation Chronic fatigue R53.82 Fatigue type: chronic, unspecified Time Spent (min) 20 Comment catrina
[2025-01-10 12:56] VITALS: BP 130/88; PULSE 85; O2SAT 93; BMI 39.7
== END 2025-01-10 13:47 | disposition home or self-care (01) ==
LOC: HO.HSMS 12:51
PROVIDERS: PCP Internal Medicine; Visit Provider Physician Assistant Medical
DX: G47.33 Obstructive sleep apnea (adult) (pediatric) (principal); G47.62 Sleep related leg cramps; R06.81 Apnea, not elsewhere classified; J45.901 Unspecified asthma with (acute) exacerbation; R53.82 Chronic fatigue, unspecified
CPT/HCPCS: 99214

== ENCOUNTER → 2025-01-10 12:50 | Outpatient (BNVA) | payer OTHER, SELFPAY | PROVIDERS: PCP Internal Medicine; Visit Provider Physician Assistant Medical | DX: R06.83 Snoring (principal); G47.10 Hypersomnia, unspecified; R06.81 Apnea, not elsewhere classified; G47.62 Sleep related leg cramps | CPT/HCPCS: 99212 ==

== ENCOUNTER 2025-01-14 11:12 | Outpatient (AMB) | payer OTHER, SELFPAY ==
--- NOTE | 2025-01-14 11:27 | A.OFFPC_ITS ---
Vital Signs 01/14/25 11:32 Height 5 ft 8 in Weight 258 lb BMI 39.2 BP 120/76 Blood Pressure Location Rt brachial Position Sitting Respiration 16 Pulse 89 Pulse Source Pulse Oximeter Temp 98.2 F Temp Source Oral Pulse Oximetry (%) 94 Oxygen Delivery Method Room Air Intake Visit Reasons: swelling/pain feet Intake Note: Bilateral swelling and pain in the feet, mostly on the right. Started after fishing and standing on feet. Lasted for 5 days. Still experiencing numbness. Land Leasing Information Clerk Required: No Allergies Penicillins Allergy (Unknown, Verified 01/14/25 11:28) Unknown Tobacco use date assessed: 01/14/25 Fall risk assessment: No Falls in past year Last assessed Fall Risk: 01/14/25 Dental Screening Dental Screen Date: 01/14/25 Did you have a dental visit in the last 12 months?: No Did you have a dental problem in the last 6 months where you did not have access to dental care?: No Was dental information given to patient?: Patient declined HPI HPI Comments History of Present Illness Details 63 year old male with a past medical his tory of hypertension, perforated diverticulitis, BPH, DDD, CTS, severe GRACIELA on cpap presenting for leg swelling Patient recently was fishing for a few days in a row. Prolonged standing. Had also eaten fuller, blt, popcorn in the course of a few days. Developed lower leg swelling and increased neuropathy, worse right>left. No calf swelling, pain. Has had ongoing mild intermittent numbness/tingling in the feet. History of low back pain-no real increase in back pain. Has A1C ordered. Denies shortness of breath, wheezing. The swelling has since resolved GI: Was hospitalized 08/2023 for perforated diverticulitis s/p Lulu. [facility] and will be scheduled for reversal. Rsp: On cpap. doing well. PFTs pending CV: On lisinopril-hctz. Blood pressure is well controlled Urology: Started on flomax while hospitalized which he has continued. Says he received flu, covid and shingles vaccine at the pharmacy ROS see HPI PHYSICAL EXAM: GENERAL: Alert and oriented x 3. NAD EYES: EOMI. Anicteric. HENT: Moist mucous membranes. LUNGS: Scattered rhonci, wheeze CARDIOVASCULAR: Regular rate and rhythm. No murmur. No JVD. ABDOMEN: Soft, non-tender +bs EXTREMITIES: No edema. Non-tender. SKIN: No rashes or lesions. Warm. NEUROLOGIC: No focal neurological deficits. CN II-XII grossly intact PSYCHIATRIC: Cooperative. Appropriate mood and affect [facility] Medical History (Updated 01/14/25 @ 12:15 by Gertrudis Doshi MD) Severe obstructive sleep apnea Nocturnal leg cramps Witnessed apneic spells Hypersomnia Snoring Abnormal CBC Hypertension BPH (benign prostatic hyperplasia) Reactive airway disease Shortness of breath Surgical History History of colon surgery Social History Housing: House Alcohol intake: current Patient Tobacco Use Status: Former Tobacco user Cigarette Packs Per Day: 0.5 Years Smoked: 15 e-Cigarette/Vaping Use: Never Used Second Hand Smoke Exposure: No Substance Use Type: Crack/Cocaine, Former Substance User and Marijuana service: No Current occupational status: retired Cognitive needs: No Hearing needs: No Vision needs: No Questionnaire Thrive Questionnaire Date Thrive assessed: 09/21/24 I am a: Patient What is your living situation today?: I have a steady place to live Within the past 12 months, did the food you bought not last and you didn't have the money to get more?: Never true Within the past 12 months, did you worry whether your food would run out before you got money to buy more?: Never true Do you have trouble paying for medicines?: No Do you have trouble getting transportation to medical appointments?: No Do you have trouble paying your heating and electricity bill?: No Do you have trouble taking care of your child, family member or friend?: No Do you have trouble with day-to-day activities such as bathing, preparing meals, shopping, managing finances, etc.?: No Are you currently unemployed and looking for a job?: No Are you interested in more education?: No Please select the resources that you would like help with: None Currently or been in a relationship where the following occur: No concerns reported THRIVE Score: 0 CEM-7 AMB Questionnaire CEM-7 Date CEM - 7 assessed: 09/24/24 Source: Developed by Sukumar Lorenzoet B.W. Jeremy, Shimon Marquez and colleagues, with an educational jony from [employer]. Physical exam (Primary Care) Vital Signs: Last Vital Signs Temp 98.2 F 01/14/25 11:32 Pulse 89 01/14/25 11:32 Resp 16 01/14/25 11:32 BP 120/76 01/14/25 11:32 Pulse Ox 94 01/14/25 11:32 Oxygen Delivery Method Room Air 01/14/25 11:32 BMI result Body Mass Index 39.2 Tobacco/Smoking Status: Tobacco use Status Tobacco use date assessed 01/14/25 01/14/25 11:37 Patient Tobacco Use Status Former Tobacco user 01/14/25 11:37 e-Cigarette/Vaping Use Never Used 01/14/25 11:37 Thrive Assessment: Date of Thrive Assessment Date Thrive assessed 09/21/24 01/14/25 11:37 Currently or been in a relationship where the following occur: No concerns reported Coding Level of Care Code Est Pt Level 4 (52999) Diagnoses Neuropathy involving both lower extremities G57.93 Laterality: bilateral Right hip pain M25.551 GRACIELA (obstructive sleep apnea) G47.33 Leg swelling M79.89 Assessment & Plan Assessment & Plan (1) Lower extremity neuropathy: Code(s): G57.90 - Unspecified mononeuropathy of unspecified lower limb Category: Medical Qualifiers: Laterality: bilateral Qualified Code(s): G57.93 - Unspecified mononeuropathy of bilateral lower limbs (2) Right hip pain: Code(s): M25.551 - Pain in right hip Category: Medical (3) GRACIELA (obstructive sleep apnea): Code(s): G47.33 - Obstructive sleep apnea (adult) (pediatric) Category: Medical (4) Leg swelling: Code(s): M79.89 - Other specified soft tissue disorders Plan Bilateral leg swelling, numbness-swelling resolve, numbness improved to baseline Check labs, xrays Consider echo if recurrent. Discussed decreased sodium diet. Fatigue is improved on cpap Orders: Orders Vitamin B12 and Folate Today G57.90 - Unspecified mononeuropathy of unspecified lower limb XR lumbar spine 2-3V Today G47.62 - Sleep related leg cramps, G57.90 - Unspecified mononeuropathy of unspecified lower limb Hemoglobin A1c Today G57.90 - Unspecified mononeuropathy of unspecified lower limb XR hip RT min 2V Today G47.62 - Sleep related leg cramps, G57.90 - Unspecified mononeuropathy of unspecified lower limb, M25.551 - Pain in right hip IRON PROFILE Today G47.62 - Sleep related leg cramps, G57.90 - Unspecified mononeuropathy of unspecified lower limb, M25.551 - Pain in right hip
[2025-01-14 11:32] VITALS: BP 120/76; PULSE 89; RESP 16; TEMP 36.8; O2SAT 94; BMI 39.2
== END 2025-01-14 13:19 | disposition home or self-care (01) ==
LOC: HO.HMCFM 11:13
PROVIDERS: PCP Internal Medicine; Visit Provider Internal Medicine
DX: G57.93 Unspecified mononeuropathy of bilateral lower limbs (principal); M25.551 Pain in right hip; G47.33 Obstructive sleep apnea (adult) (pediatric); M79.89 Other specified soft tissue disorders

== ENCOUNTER → 2025-01-14 11:12 | Outpatient (BNVA) | payer OTHER, SELFPAY | PROVIDERS: PCP Internal Medicine; Visit Provider Internal Medicine ==

== ENCOUNTER 2025-01-14 11:59 | Outpatient (REF) | payer OTHER, SELFPAY ==
[2025-01-14 14:02] LABS: MANUAL DIFF FLAG NO
[2025-01-14 14:11] LABS: Basophils Absolute Auto 0.1 X10*3/uL (0.0-0.2); Basophils Percent Auto 0.6 % (0-2); Eosinophils Absolute Auto 0.1 X10*3/uL (0.0-0.4); Eosinophils Percent Auto 1.2 % (0-4); Hematocrit 45.5 % (42.0-52.0); Hemoglobin 15.8 g/dl (14.0-18.0); Imm Gran Abs Auto 0.04 X10*3/uL (0.00-0.03); Imm Gran Pct Auto 0.5 % (0.0-0.4); Lymphocytes Absolute Auto 2.8 X10*3/uL (1.2-4.9); Lymphocytes Percent Auto 34.3 % (20-40); Mean Corpuscular HGB Conc 34.7 g/dl (31.0-36.0); Mean Corpuscular Hemoglobin 30.2 pg (27.0-33.0); Mean Corpuscular Volume 86.8 fL (80.0-98.0); Mean Platelet Volume 9.3 fL (9.4-12.4); Monocytes Absolute Auto 0.8 X10*3/uL (0.1-1.2); Monocytes Percent Auto 9.7 % (2-11); Neutrophils Absolute Auto 4.3 x10*3/uL (2.0-8.3); Neutrophils Percent Auto 53.7 % (45-73); Platelet Count 232 X10*3/uL (160-400); Red Blood Count 5.24 X10*6/uL (4.60-5.80); Red Cell Distribution Width 12.5 % (11.0-16.0)
[2025-01-14 14:20] LABS: Estimated Average Glucose 146 mg/dL; Hemoglobin A1c % 6.7 % (<6.0); Total Hemoglobin (HGBA1C) 4131.4411 umol/L
[2025-01-14 14:29] LABS: Alanine Aminotransferase 35 U/L (0-40); Albumin Level 4.5 g/dL (3.5-5.0); Alkaline Phosphatase 82 U/L (39-117); Anion Gap 14 (12-20); Aspartate Amino Transferase 26 U/L (5-37); Bilirubin Total 0.6 mg/dL (0.0-1.0); Blood Urea Nitrogen 19 mg/dL (9-16); Calcium 9.4 mg/dL (8.4-10.2); Carbon Dioxide 24 mmol/L (22-29); Chloride 101 mmol/L (96-108); Estimated Glomerular Filt Rate 58; Glucose Random 184 mg/dL (60-115); Iron 142 mcg/dL (45-160); Percent Iron Saturation 44 % (15-50); Potassium 3.9 mmol/L (3.3-5.1); Sodium 135 mmol/L (135-145); Total Iron Binding Capacity 320 mcg/dL (228-428); Total Protein 7.5 g/dL (6.5-8.0); Unsaturated Iron Binding 178 ug/dL
[2025-01-14 14:49] LABS: Ferritin 91 ng/mL (20-250); TSH reflex Free T4 1.85 uIU/mL (0.32-4.0)
[2025-01-14 14:57] LABS: Folate 12.6 ng/mL (> or = 4.0); Vitamin B12 565 pg/mL (200-900)
[2025-01-17 02:34] LABS: Methylmalonic Acid 175 nmol/L (69-390)
== END 2025-01-14 12:00 | disposition home or self-care (01) ==
LOC: HO.WFDLDS 11:59
PROVIDERS: Referring Provider Physician Assistant Medical; Visit Provider Internal Medicine
DX: G57.93 Unspecified mononeuropathy of bilateral lower limbs (principal); M25.551 Pain in right hip; G47.33 Obstructive sleep apnea (adult) (pediatric); M79.89 Other specified soft tissue disorders; J45.901 Unspecified asthma with (acute) exacerbation; R06.02 Shortness of breath; R53.83 Other fatigue; G47.62 Sleep related leg cramps
CPT/HCPCS: 36415; 80053; 82306; 82607; 82728; 82746; 83036; 83540; 83921; 84443; 85025; 99212

== ENCOUNTER → 2025-03-07 13:58 | Outpatient (AMB) | payer OTHER, SELFPAY ==
--- NOTE | 2025-03-07 14:52 | MHC.AMDMED ---
Intake Intake Visit Reasons: Type 2 diabetes mellitus without complications Collections Manager Required: No Accompanied by: Daughter Allergies Penicillins Allergy (Unknown, Verified 01/14/25 11:28) Unknown HPI Comprehensive Diabetes Asmnt Most Recent Diabetes Results: Cholesterol, (<200) 166 mg/dL 04/13/24 HDL Cholesterol, (>40) 42 mg/dL 04/13/24 Triglycerides, (<150) 123 mg/dL 04/13/24 Creatinine, (0.5-1.4) 1.25 mg/dL 01/14/25 BUN, (9-16) 19 mg/dL H 01/14/25 Sodium, (135-145) 135 mmol/L 01/14/25 Potassium, (3.3-5.1) 3.9 mmol/L 01/14/25 Chloride, (96-108) 101 mmol/L 01/14/25 Carbon Dioxide, (22-29) 24 mmol/L 01/14/25 Calcium, (8.4-10.2) 9.4 mg/dL 01/14/25 AST, (5-37) 26 U/L 01/14/25 ALT, (0-40) 35 U/L 01/14/25 Total Protein, (6.5-8.0) 7.5 g/dL 01/14/25 Albumin, (3.5-5.0) 4.5 g/dL 01/14/25 [facility] Medical History (Updated 01/23/25 @ 16:17 by Gertrudis Doshi MD) Severe obstructive sleep apnea Nocturnal leg cramps Witnessed apneic spells Hypersomnia Snoring Abnormal CBC Hypertension BPH (benign prostatic hyperplasia) Reactive airway disease Shortness of breath Surgical History History of colon surgery Social History Housing: House Alcohol intake: current Patient Tobacco Use Status: Former Tobacco user Cigarette Packs Per Day: 0.5 Years Smoked: 15 e-Cigarette/Vaping Use: Never Used Second Hand Smoke Exposure: No Substance Use Type: Crack/Cocaine, Former Substance User and Marijuana service: No Current occupational status: retired Cognitive needs: No Hearing needs: No Vision needs: No Assessment & Plan Assessment & Plan (1) Newly diagnosed diabetes: Code(s): E11.9 - Type 2 diabetes mellitus without complications Plan: Diabetes self-management education and support participation record Assessment/scale: 1= needs instructed? 2= needs review? 3= comprehend keep point? 4= demonstrates understanding/ competent? NC= Not Covered Topics Learning Objective: Initial visit Initial or post srvc Initial or post srvc Initial or post srvc Initial or post srvc Initial or post srvc Post srvc Comments Pre Edu-assessment/plan Outcome or reassess Outcome or reassess Outcome or reassess Outcome or reassess Outcome or reassess Outcome or reassess Diabetes pathophysiology Healthy eating Being active Taking medication Monitoring glucose Acute complication Chronic complicated Lifestyle and healthy coping Diabetes distress in support ?Diabetes pathophysiology: ?Defined diabetes med identify own type of diabetes; list 3 options for treating diabetes Healthy eating: ?Described effect of type, amount and ?timing of food on blood glucose; list 3 methods for planning meal Being active: ?State effect of exercise on blood glucose level Taking medication: ?State effect of diabetes medications on diabetes; name diabetes medications taking, action and side effects Monitoring glucose: ?Identify recommended blood glucose targets and personal target Acute complication: ?List symptoms and treatment of hyper and hypoglycemia, DKA, sick day guidelines and guidelines for severe weather or situations of crisis and diabetes supply manage Chronic complication: ?To find the relationship of blood glucose levels to long-term complications of diabetes in screening and preventative measures Lifestyle and healthy coping: ?Described lifestyle and healthy coping strategies to rule out diabetes self-management Diabetes to stress and support: ?Recognize Diabetes to stress and be able to identified support options Learning objectives: The patient was provided with verbal and written education on the following topics as outlined below. The patient met all learning objectives and was able to verbalize understanding and provide teach back of education topics discussed . The patient was provided with the opportunity to ask questions and all questions were answered. Patient Assessment Assess patient education level/literacy/barriers, patient newly diagnosed with type 2 diabetes with A1c of 6.7% He is prescribed metformin 750 mg daily Patient reports he has not been taking metformin, but is willing to start Patient questions/concerns What is Diabetes? Pathophysiology How the body produces and uses insulin Identify type of DM Risk factors Signs of Diabetes Brief overview of Diabetes Management Monitoring blood sugar Following a meal plan Regular exercise Maintaining a healthy weight Taking medication as needed Members of the care team (PCP, RN, MA, RD, CDE, community development technician) Blood glucose monitoring When/how often to test Target blood sugar ranges Introduction to Nutrition Importance of healthy diet in managing DM Diet is personalized to individual preference Review patient?s regular diet/food preferences Who prepares meals/does food shopping/ Dining out?/ Barriers? How diet effects glucose Eating 3 balanced meals a day with small, healthy snacks between meals Review food groups Carbohydrates: What is a carbohydrate/Which food/food groups are considered carbohydrates Effect of carbohydrates on blood glucose Portion sizes Reading food labels Basic carb counting (if applicable per nursing assessment) Plate method Meal planning Recommendations: Follow plate method, consistent carbs and read nutritional labels. Smart Goal: Patient will keep portions of carbohydrates from 45-60 g per meal Educational Materials: The patient was provided with the following written educational materials: Planning Healthy Meals Handout Patient Response to instructions: Comprehension of Instructions: Fair Readiness to make changes: Contemplation How confident they feel about making changes: Positive Portions of this note were created using voice recognition software, please excuse any words or phrases that may have been misinterpreted. Patient Instructions: Include regular daily activity. ADA recommends 30 minutes of exercise 5 days a week. Weight loss talk to PCP or Surface Lay Out Technician before starting new plan. Test blood sugar as directed; Fasting and 2hpp largest meal. Watch trends in results. Utilize results and to assess how food, physical activity and medications affect blood sugar results. Bring glucometer or CGM to next visit. Be knowledgeable about diabetes medication, its action, side effects, efficacy, toxicity, prescribed dosage, appropriate timing and frequency of administration, effect of missed and delayed doses and instructions for storage, travel and safety. Problem solving techniques to monitor hypo/hyperglycemia episodes and treatments. Reduce risk reduction behaviors, smoking cessation, regular eye, foot and dental examinations. Coding Level of Care Code Est Pt Level 1 (62932) Diagnoses Newly diagnosed diabetes E11.9
== END ==
LOC: HO.ENCR 13:59
PROVIDERS: PCP Internal Medicine; Visit Provider Registered Nurse Diabetes Educator
DX: E11.9 Type 2 diabetes mellitus without complications (principal)

== ENCOUNTER → 2025-03-07 13:58 | Outpatient (BNVA) | payer SELFPAY | PROVIDERS: PCP Internal Medicine; Visit Provider Registered Nurse Diabetes Educator | DX: E11.9 Type 2 diabetes mellitus without complications (principal) | CPT/HCPCS: 99211 ==

== ENCOUNTER 2025-03-19 10:30 | Outpatient (AMB) | payer MEDICARE, SELFPAY ==
[2025-03-19 10:32] VITALS: BP 138/84; PULSE 59; O2SAT 97; BMI 40.2
--- NOTE | 2025-03-19 10:32 | MHC.OFFVIS ---
Vital Signs 03/19/25 10:32 Height 5 ft 8 in Weight 264 lb 6 oz BMI 40.2 BP 138/84 Blood Pressure Location Rt brachial Position Sitting Pulse 59 Pulse Source Pulse Oximeter Pulse Oximetry (%) 97 Oxygen Delivery Method Room Air Intake Visit Reasons: SOB/ ASTHMA Allergies Penicillins Allergy (Unknown, Verified 03/19/25 10:35) Unknown HPI HPI SOB/ ASTHMA: Details: Sage is a pleasant 65 year old male, former 10 pack year smoker, quit 30 years ago with HTN, DMII and Severe GRACIELA. He was referred by PCP for preoperative evaluation for proposed ostomy reversal and presents with dyspnea on exertion. He reports quitting smoking marijuana a year and a half ago after being advised to do so for ostomy reversal surgery, having smoked for 45 years. He also quit smoking cigarettes 30 years ago after smoking since the age of 15. The patient has a history of diverticulitis, which led to an ostomy following emergency surgery for perforations. He experienced significant weight gain post-surgery, reaching 260 pounds, and reports decreased activity levels during recovery. He describes a prolonged healing process with a surgical wound that took 2-3 months to close which he attributes to overall deconditioning and more notable dyspnea. The patient reports dyspnea on exertion, which he noticed upon resuming physical activity after surgery. He denies dyspnea at rest but experiences it during exertion, such as jogging or lifting weights. 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 The patient has a history of pneumonia earlier this year, which was treated with antibiotics and resolved. Denies recurrent respiratory infections. He has used albuterol and a Symbicort inhaler during this episode but has not required them since. The patient has severe sleep apnea, previously experiencing over 30 apneic episodes per hour, now managed with CPAP therapy, under the care of Sleep Medicine. He reports significant improvement in symptoms and quality of life since starting CPAP therapy. [facility] Medical History (Updated 03/19/25 @ 10:57 by Yana Cruz NP) Severe obstructive sleep apnea Nocturnal leg cramps Witnessed apneic spells Hypersomnia Snoring Abnormal CBC Hypertension BPH (benign prostatic hyperplasia) Reactive airway disease Shortness of breath Surgical History History of colon surgery Social History Housing: House Alcohol intake: current Patient Tobacco Use Status: Former Tobacco user Cigarette Packs Per Day: 0.5 Years Smoked: 15 e-Cigarette/Vaping Use: Never Used Second Hand Smoke Exposure: No Substance Use Type: Crack/Cocaine, Former Substance User and Marijuana service: No Current occupational status: retired Cognitive needs: No Hearing needs: No Vision needs: No Review of Systems Const Denies chills, Denies excessive sweating, Denies fever(s), Denies headache(s) and Denies night sweats Eyes Denies dry eyes, Denies irritation and Denies itchy eyes ENT Reports Normal hearing present, Denies headache(s), Denies nasal congestion, Denies nasal discharge, Denies post nasal drip and Denies sore throat Card Denies chest pain, Denies chest pain at rest, Denies chest pain with activity, Denies claudication, Denies leg edema, Denies orthopnea and Denies paroxysmal nocturnal dyspnea Resp Denies chest congestion, Denies cough, Denies excessive phlegm production, Denies pain on inspiration, Denies pain with cough and Denies stridor Musc Denies myalgias Neuro Reports Normal hearing present and Denies headache(s) Endo Denies excessive sweating Gerald/Lymph Denies lymphadenopathy Aller/Immun Denies itchy eyes and Denies seasonal rhinorrhea Physical Exam Vital Signs: Last Vital Signs Pulse 59 03/19/25 10:32 BP 138/84 03/19/25 10:32 Pulse Ox 97 03/19/25 10:32 Oxygen Delivery Method Room Air 03/19/25 10:32 BMI result Body Mass Index 40.2 Const General: cooperative, healthy appearing, comfortable, no acute distress, well developed and alert Nutritional Appearance: obese Orientation/consciousness: patient oriented x3 Limitations: no limitations HEENT Head: Yes normal to inspection, Yes normocephalic and Yes atraumatic Ears: hearing grossly normal bilaterally and external ears normal Eyes General: appearance normal, both eyes and all related structures Eyelids: Yes eyelids normal Sclerae: sclerae normal EOM: EOMs intact bilaterally Neck Neck: Yes normal visual inspection and Yes no lymphadenopathy Lymphatic: no lymphadenopathy noted Chest Chest palpation & inspection: normal inspection of the chest Resp Effort & Inspection: normal respiratory effort, able to speak in complete sentences, no audible wheezes, no cough, no stridor, not tachypneic, no tripod positioning and no use of accessory muscles Auscultation: clear to auscultation bilaterally Cardio Jugular venous distension: no JVD Rate: regular rate Rhythm: regular rhythm Skin Other: warm, dry General skin exam: no rashes or lesions noted Neuro General: patient oriented x3 Cranial nerves: Yes Normal hearing present Cognition (Neuro): normal cognition Gait exam (Neuro): Normal gait present Extrem General: Yes normal to inspection, Yes capillary refill normal, Yes no clubbing, cyanosis or edema and Yes no pedal edema Psych Appearance: grossly normal and well kempt Speech and movement: Normal speech and movement present and Clear speech present Affect: normal affect Attitude: cooperative Thought process: Normal thought process present Thought content: Normal thought content present Insight: Good insight present (Psych) Judgement: Good judgement present (Psych) Assessment & Plan Assessment & Plan (1) Shortness of breath: Code(s): R06.02 - Shortness of breath Category: Medical (2) Severe obstructive sleep apnea: Code(s): G47.33 - Obstructive sleep apnea (adult) (pediatric) Category: Medical Plan The patient will undergo a pulmonary function test in April, scheduled by PCP, to assess for conditions such as asthma or COPD that may impact surgical risk. A chest x-ray is recommended to provide a baseline assessment of lung health prior to potential surgery. The patient is advised to continue using CPAP therapy for sleep apnea management, which has shown significant improvement in symptoms. The patient is encouraged to report any worsening of respiratory symptoms before the next appointment. All questions were answered and patient is in agreement of plan. Will follow up to review results or sooner i if needed. Orders: Orders XR chest 2V Today R06.00 - Dyspnea, unspecified Coding Level of Care Code New Pt Level 4 (97285) Diagnoses Shortness of breath R06.02 Severe obstructive sleep apnea G47.33
== END 2025-03-19 11:03 | disposition home or self-care (01) ==
LOC: HO.HPSW 10:31
PROVIDERS: PCP Internal Medicine; Referring Provider Internal Medicine; Visit Provider Nurse Practitioner Family
DX: R06.02 Shortness of breath (principal); G47.33 Obstructive sleep apnea (adult) (pediatric)
CPT/HCPCS: 99204

== ENCOUNTER → 2025-03-19 10:30 | Outpatient (BNVA) | payer MEDICARE, SELFPAY | PROVIDERS: PCP Internal Medicine; Referring Provider Internal Medicine; Visit Provider Nurse Practitioner Family | DX: R06.02 Shortness of breath (principal); G47.33 Obstructive sleep apnea (adult) (pediatric) | CPT/HCPCS: 99202 ==

== ENCOUNTER 2025-04-15 12:37 | Outpatient (REF) | payer MEDICARE, SELFPAY ==
--- NOTE | ~2025-04-15 | XR_ITS ---
EXAMINATION: XR CHEST CLINICAL INFORMATION: R06.00 - Dyspnea, unspecified COMPARISON: None available. TECHNIQUE: 2 views of the chest were obtained. FINDINGS: No significant abnormality is noted involving the heart, lungs, mediastinum, or soft tissues. Disc space narrowing and osteophytes are noted in the upper thoracic spine. XR/XR chest 2V IMPRESSION: No acute disease Mild to moderate degenerative disc disease in the mid to upper thoracic spine. Electronically signed by: Harshad Mcmahan MD 04/15/2025 12:57 PM EDT
== END 2025-04-15 12:38 | disposition home or self-care (01) ==
LOC: HO.XRAY 12:37
PROVIDERS: PCP Internal Medicine; Visit Provider Nurse Practitioner Family
DX: R06.00 Dyspnea, unspecified (principal)
CPT/HCPCS: 71046

== ENCOUNTER → 2025-04-15 12:43 | Outpatient (BNV) | payer MEDICARE, SELFPAY | PROVIDERS: PCP Internal Medicine; Visit Provider Radiology Diagnostic Radiology | DX: R06.00 Dyspnea, unspecified (principal) | CPT/HCPCS: 71046 ==

== ENCOUNTER 2025-04-25 14:08 | Outpatient (REF) | payer MEDICARE, SELFPAY ==
--- NOTE | 2025-04-25 14:11 | PFT_ITS ---
Flows: FEV1: 84 % of predicted at 2.67 L FVC: 105 % of predicted at 4.33 L FEV1/FVC: 62 % Bronchodilator response: Present in small to medium airways only Volumes: Total lung capacity: 105 % of predicted at 7.03 L Residual volume: 119 % of predicted at 2.64 L Slow vital capacity: 97 % of predicted at 4.38 L Expiratory reserve volume: 69 % of predicted at 0.79 L Diffusion capacity: Normal Impression: Mild obstructive ventilatory defect with bronchodilator response present in small to medium airways only. Decreased expiratory reserve volume suggests extrathoracic restriction likely secondary to abdominal obesity. MTDD
[2025-04-25 14:53] VITALS: PULSE 66; O2SAT 97
== END 2025-04-25 14:09 | disposition home or self-care (01) ==
LOC: HO.RESP 14:08
PROVIDERS: PCP Internal Medicine; Visit Provider Internal Medicine
DX: R06.02 Shortness of breath (principal); J45.901 Unspecified asthma with (acute) exacerbation
CPT/HCPCS: 94010; 94640; 94727; 94729

== ENCOUNTER → 2025-04-25 14:11 | Outpatient (BNV) | payer MEDICARE, SELFPAY | PROVIDERS: PCP Internal Medicine; Visit Provider Internal Medicine Pulmonary Disease | DX: R06.2 Wheezing (principal) | CPT/HCPCS: 94060; 94727; 94729 ==

== ENCOUNTER 2025-07-19 11:05 | Outpatient (AMB) | payer MEDICARE, SELFPAY ==
--- NOTE | 2025-07-19 11:11 | A.OFFPC_ITS ---
Vital Signs 07/19/25 11:14 Weight 254 lb 4 oz BP 116/64 Blood Pressure Location Rt brachial Position Sitting Respiration 14 Pulse 79 Pulse Source Pulse Oximeter Temp 98 F Temp Source Oral Pulse Oximetry (%) 93 Oxygen Delivery Method Room Air Intake Visit Reasons: follow up Intake Note: Follow up Allergies metformin Allergy (Severe, Verified 07/19/25 11:21) Diarrhea Penicillins Allergy (Unknown, Verified 07/19/25 11:15) Unknown Tobacco use date assessed: 01/14/25 Dental Screening Dental Screen Date: 01/14/25 HPI HPI Comments History of Present Illness Details 63 year old male with a past medical his tory of diabetes, hypertension, perforated diverticulitis, BPH, DDD, CTS, severe GRACIELA on cpap presenting for follow up MSK: Bilateral leg pain. No calf swelling, pain. Has had ongoing mild intermittent numbness/tingling in the feet. History of low back pain-no real increase in back pain. Diabetic A1C improved to 6.4% cut out sugar, lost 10 pounds. Still with LE pain, minimal swelling. Using compression. GI: Was hospitalized 08/2023 for perforated diverticulitis s/p Lulu. Has followed up with colorectal [facility] and was ok'd for reversal. He can not decide whether to get reversal Rsp: On cpap. Doing well. Following with pulmonary. 2 week history of sinus and chest congestion, some improvement over the past few days. No fevers. Flying on Tuesday CV: On lisinopril-hctz. Blood pressure is well controlled. He has lost 10 pounds. Denies chest pain, exertional dyspnea Urology: Started on flomax while hospitalized which he has continued. Says he received flu, covid and shingles vaccine at the pharmacy ROS see HPI PHYSICAL EXAM: GENERAL: Alert and oriented x 3. NAD EYES: EOMI. Anicteric. HENT: Moist mucous membranes. LUNGS: Scattered rhonci, wheeze CARDIOVASCULAR: Regular rate and rhythm. No murmur. No JVD. ABDOMEN: Soft, non-tender +bs EXTREMITIES: No edema. Non-tender. SKIN: No rashes or lesions. Warm. NEUROLOGIC: No focal neurological deficits. CN II-XII grossly intact PSYCHIATRIC: Cooperative. Appropriate mood and affect [facility] Medical History (Updated 03/19/25 @ 10:57 by Yana Cruz NP) Severe obstructive sleep apnea Nocturnal leg cramps Witnessed apneic spells Hypersomnia Snoring Abnormal CBC Hypertension BPH (benign prostatic hyperplasia) Reactive airway disease Shortness of breath Surgical History History of colon surgery Social History Housing: House Alcohol intake: current Patient Tobacco Use Status: Former Tobacco user Cigarette Packs Per Day: 0.5 Years Smoked: 15 Packs Per Year: 8 e-Cigarette/Vaping Use: Never Used Second Hand Smoke Exposure: No Substance Use Type: Crack/Cocaine, Former Substance User and Marijuana service: No Current occupational status: retired Cognitive needs: No Hearing needs: No Vision needs: No Questionnaire Thrive Questionnaire Date Thrive assessed: 09/21/24 I am a: Patient What is your living situation today?: I have a steady place to live Within the past 12 months, did the food you bought not last and you didn't have the money to get more?: Never true Within the past 12 months, did you worry whether your food would run out before you got money to buy more?: Never true Do you have trouble paying for medicines?: No Do you have trouble getting transportation to medical appointments?: No Do you have trouble paying your heating and electricity bill?: No Do you have trouble taking care of your child, family member or friend?: No Do you have trouble with day-to-day activities such as bathing, preparing meals, shopping, managing finances, etc.?: No Are you currently unemployed and looking for a job?: No Are you interested in more education?: No Please select the resources that you would like help with: None Currently or been in a relationship where the following occur: No concerns reported THRIVE Score: 0 CEM-7 AMB Questionnaire CEM-7 Date CEM - 7 assessed: 09/24/24 Source: Developed by Drs. Jean-Pierre Pelayo, Mihaela Luna, Shimon Marquez and colleagues, with an educational jony from [place]. Physical exam (Primary Care) Vital Signs: Last Vital Signs Temp 98 F 07/19/25 11:14 Pulse 79 07/19/25 11:14 Resp 14 07/19/25 11:14 BP 116/64 07/19/25 11:14 Pulse Ox 93 07/19/25 11:14 Oxygen Delivery Method Room Air 07/19/25 11:14 Tobacco/Smoking Status: Tobacco use Status Tobacco use date assessed 01/14/25 07/19/25 11:13 Patient Tobacco Use Status Former Tobacco user 07/19/25 11:13 e-Cigarette/Vaping Use Never Used 07/19/25 11:13 Thrive Assessment: Date of Thrive Assessment Date Thrive assessed 09/21/24 07/19/25 11:13 Currently or been in a relationship where the following occur: No concerns reported Results AMB Hemoglobin A1c AMB Hemoglobin A1c 6.4 % Last Edit by Tawnya Navarrete CMA on 07/19/25 11:33 Coding Level of Care Code Add On Preventative Visit Only Diagnoses GRACIELA (obstructive sleep apnea) G47.[address] Z93.3 Newly diagnosed diabetes E11.9 Primary hypertension I10 Hypertension type: primary hypertension Chronic fatigue R53.82 Fatigue type: chronic, unspecified Assessment & Plan Assessment & Plan (1) GRACIELA (obstructive sleep apnea): Code(s): G47.33 - Obstructive sleep apnea (adult) (pediatric) Category: Medical (2) Colostomy in place: Code(s): Z93.3 - Colostomy status Category: Medical (3) Newly diagnosed diabetes: Code(s): E11.9 - Type 2 diabetes mellitus without complications Category: Medical (4) Hypertension: Code(s): I10 - Essential (primary) hypertension Category: Medical Qualifiers: Hypertension type: primary hypertension Qualified Code(s): I10 - Essential (primary) hypertension (5) Fatigue: Code(s): R53.83 - Other fatigue Category: Medical Qualifiers: Fatigue type: chronic, unspecified Qualified Code(s): R53.82 - Chronic fatigue, unspecified Plan 65 year old male presenting for follow up Interval history reviewed GRACIELA-controlled on cpap therapy. Has seen pulmonary and sleep medicine Diabetes-saw CDE. Improving A1C Labs ordered URI/sinus infection-azithromycin Orders: Orders Lipid Panel Today E11.9 - Type 2 diabetes mellitus without complications, I10 - Essential (primary) hypertension, N40.1 - Benign prostatic hyperplasia with lower urinary tract symptoms, R53.82 - Chronic fatigue, unspecified AMB Hemoglobin A1c Today E11.9 - Type 2 diabetes mellitus without complications Comprehensive Met. Panel Today E11.9 - Type 2 diabetes mellitus without complications, I10 - Essential (primary) hypertension, N40.1 - Benign prostatic hyperplasia with lower urinary tract symptoms, R53.82 - Chronic fatigue, unspecified Prostate Specific Antigen Today E11.9 - Type 2 diabetes mellitus without complications, I10 - Essential (primary) hypertension, N40.1 - Benign prostatic hyperplasia with lower urinary tract symptoms, R53.82 - Chronic fatigue, unspecified Medications: New azithromycin 500 mg PO DAILY 5 tabs 0RF 5 days Patient Instructions: Let me know if you want to have arterial and venous studies orders for the leg Take Afrin before your flight and consider doing a decongestant prior to your flight
[2025-07-19 11:14] VITALS: BP 116/64; PULSE 79; RESP 14; TEMP 36.6; O2SAT 93
== END 2025-07-19 11:40 | disposition home or self-care (01) ==
LOC: HO.HMCFM 11:06
PROVIDERS: PCP Internal Medicine; Visit Provider Internal Medicine
DX: E11.9 Type 2 diabetes mellitus without complications (principal); I10 Essential (primary) hypertension; G47.33 Obstructive sleep apnea (adult) (pediatric); Z93.3 Colostomy status; R53.82 Chronic fatigue, unspecified

== ENCOUNTER 2025-07-19 11:05 | Outpatient (REF) | payer MEDICARE, SELFPAY ==
[2025-07-19 16:47] LABS: Alanine Aminotransferase 48 U/L (0-40); Albumin Level 4.5 g/dL (3.5-5.0); Alkaline Phosphatase 75 U/L (39-117); Anion Gap 13 (12-20); Aspartate Amino Transferase 32 U/L (5-37); Blood Urea Nitrogen 19 mg/dL (9-16); Calcium 9.6 mg/dL (8.4-10.2); Carbon Dioxide 26 mmol/L (22-29); Chloride 104 mmol/L (96-108); Cholesterol 140 mg/dL (<200); Estimated Glomerular Filt Rate 57; HDL Cholesterol 33 mg/dL (>40); Potassium 4.4 mmol/L (3.3-5.1); Sodium 139 mmol/L (135-145); Total Protein 7.5 g/dL (6.5-8.0); Triglycerides 95 mg/dL (<150)
[2025-07-19 16:56] LABS: Folate 12.0 ng/mL (> or = 4.0); Prostate Specific Antigen 1.84 ng/mL (<0.05-4.0); Vitamin B12 643 pg/mL (200-900)
== END 2025-07-19 11:06 | disposition home or self-care (01) ==
LOC: HO.WFDLDS 11:05
PROVIDERS: PCP Internal Medicine; Visit Provider Internal Medicine
DX: I10 Essential (primary) hypertension (principal); E11.9 Type 2 diabetes mellitus without complications; R53.82 Chronic fatigue, unspecified; N40.1 Benign prostatic hyperplasia with lower urinary tract symptoms; G47.33 Obstructive sleep apnea (adult) (pediatric); Z93.3 Colostomy status
CPT/HCPCS: 36415; 80053; 80061; 82607; 82746; 83036; 84153; 99212